=== PATIENT | female | born 1995 | race Caucasian/White ===

== ENCOUNTER 2017-06-19 17:05 | Emergency (ER) | payer BC, MEDICAID ==
[~2017-06-19] VITALS: Ht 167.6 cm; Wt 109.1 kg
[~2017-06-19 17:05] MED LIST: FOLICAP PO; RANI150 PO
[2017-06-19 17:06] VITALS: BP 136/77; PULSE 102; RESP 20; TEMP 98.7; O2SAT 100
--- NOTE | 2017-06-19 18:36 | PD ---
HPI Chief Complaint: Pain: Acute or Chronic Time Seen by Provider: 18:20 Travel History International Travel<30 days: No Contact w/Intl Traveler<30days: No Traveled to known affect area: No History of Present Illness HPI 22-year-old female presents to the emergency room for evaluation of left breast pain for the past 14 hours. Patient states the pain woke her from sleep and has been constant. It is generalized to the entire left breast. States she had a similar incident a few weeks ago that resolved but this has persisted. She denies any trauma or injury to the breast. Denies any nipple discharge, fever, chills, nausea, vomiting. She has not breast fed for 2 years. States she has not had her menstrual cycle in 5 months because she recently stopped taking the Depo-Provera shot. She took a test one week ago and today and both were negative. PFSH Past Medical History ?: Not LMP: 04/2017 Social History Alcohol Use: No Tobacco Use: No Allergies-Medications (Allergen,Severity, Reaction): Coded Allergies: *MDRO Multi-Drug Resistant Organism (Verified Adverse Reaction, Unknown, ) MRSA PCR Screen negative 11/16/14. Reported Meds & Prescriptions Reported Meds & Active Scripts Active Review of Systems Except as stated in HPI: all other systems reviewed are Neg Physical Exam Narrative GENERAL: Well-nourished, obese female in no acute distress. Afebrile. Ambulatory. SKIN: Focused skin assessment warm/dry. No peau d'orange, redness, or bruising. HEAD: Normocephalic. EYES: No scleral icterus. No injection or drainage. NECK: Supple, trachea midline. No JVD or lymphadenopathy. CARDIOVASCULAR: Regular rate and rhythm without murmurs, gallops, or rubs. RESPIRATORY: Breath sounds equal bilaterally. No accessory muscle use. BREAST: Examined in the presence of a nurse. Patient has large breasts that are equal in size. Nipples are inverted without spontaneous drainage. No obvious induration. Left breast is tender to palpation. No obvious lumps or nodules. Data Data Last Documented VS Vital Signs Date Time Temp Pulse Resp B/P (MAP) Pulse Ox O2 Delivery O2 Flow Rate FiO2 06/19/17 20:08 06/19/17 17:06 98.7 102 20 100 Room Air Orders Orders Acetamin-Hydrocod 325-5 Mg ([place] 5-325 (06/19/17 20:00) Ed Discharge Order (06/19/17 19:58) [facility] Medical Decision Making Medical Screen Exam Complete: Yes Emergency Medical Condition: Yes Medical Record Reviewed: Yes Differential Diagnosis Cyclical breast disease, abscess, breast cancer unlikely Narrative Course 22-year-old female presents to the emergency room for evaluation of severe, constant left breast pain that woke her up at 4:00 this morning. She denies fever, chills, nausea, vomiting. No nipple discharge from the left breast. Physical exam is reassuring. Patient has diffuse tenderness to the left breast but there is no focal erythema, induration, edema, or mass. Patient was informed that she likely has cyclical breast pain given her hormonal fluctuation after being off Depo-Provera. She was offered ultrasound to evaluate for deep abscess. Ultrasound arrived 1.5 hours after it was ordered and explained that it could not be performed to the entire breast. Because patient has no focal tenderness, the ultrasound was canceled. Patient was disappointed at having had to wait. She was given Lortab for pain prior to discharge and told to follow-up with her primary care physician for outpatient imaging if pain persists. Told to return as needed. She understands and agrees to plan. Diagnosis Primary Impression: Breast pain, left Referrals: [facility] Primary Care Physician Additional Instructions: Take ibuprofen with food as directed, as needed for pain. Apply ice to the affected area for 20 minutes at a time, as needed for pain and swelling. Follow-up with a primary care physician for outpatient imaging if symptoms persist. Return to the emergency room for worsening symptoms. Disposition: 01 DISCHARGE HOME Condition: Stable Ingrid Bermeo Jun 19, 2017 18:36
[2017-06-19] MEDS ORDERED: ACETAMINOPHEN/HYDROcodone 325 MG/5 MG TAB PO ONE (20:00)
== END 2017-06-19 20:08 | disposition home or self-care (01) ==
LOC: NEPK 17:05
DX: N64.4 Mastodynia (principal); E66.9 Obesity, unspecified
CPT/HCPCS: 99284